=== PATIENT | male | born 1950 | race Caucasian/White ===

== ENCOUNTER 2019-01-28 10:46 | Inpatient (IN) ==
--- NOTE | 2019-01-02 15:15 | PAT Medication Instructions ---
Medication Instructions Date of Service January 02, 2019 Home Medications allopurinol 100 mg PO QAM lisinopril 20 mg PO QAM naproxen sodium [Aleve] 220 mg PO UD PRN ASK your surgeon for instructions naproxen sodium [Aleve] 220 mg PO UD PRN DO NOT take the morning of surgery lisinopril 20 mg PO QAM Take morning of surgery With a small sip of water, OTHERWISE NOTHING TO EAT OR DRINK AFTER MIDNIGHT: allopurinol 100 mg PO QAM Other Notes If you have any questions please call us at [phone] or [phone] or [phone] or [phone]
--- NOTE | 2019-01-05 08:05 | History & Physical Report ---
Date of Service January 05, 2019 Date of Surgery: 01/28/19 Assessment & Plan (1) Arthritis of right glenohumeral joint: Risks and benefits of procedure discussed in detail today, patient would like to proceed with a right shoulder resurfacing vs total shoulder replacement at [facility] on 01-28-19. will obtain medical clearance prior to surgery as well as obtain PATs at [facility]. f/u 2 weeks post op for routine post-operative care and xray, sooner if having any problems. will make arrangements for OPPT at the time of discharge. History of Present Illness Chief Complaint: Right shoulder pain Primary Care Provider: Richard Mixon Mr Weber is a 68 year old male who complains of right shoulder pain, is here today for pre-op evaluation prior to right shoulder resurfacing vs total shoulder replacement at [facility] on 01-28-19. He presents with pain, crepitus, decreased ROM, weakness on the right side. He states that the symptoms have been chronic non-traumatic. Although pt. has had pain for years, he reports falling in his garage early October. He indicates the injury occurred at home. Glenis states that the symptoms began as the result of a fall injury. The symptoms occur constantly with intermittent worsening. The problem is unchanged. Currently the patient states that the symptoms are moderate. The pain is rated at 6/10. The patient presents with shoulder weakness on the right side. The symptoms are aggravated by daily activities, lifting away from the body, lifting, repetitive activities and reaching overhead. Glenis states that the symptoms were mildly relieved by injections. He has had a previous x-ray and MRI. Prior NSAIDs include Aleve and Ibuprofen. He has been treated with Pt. has had Cortisone and Visco in his shoulder in the past on the right side. Allergies Allergy/AdvReac Type Severity Reaction Status Date / Time No Known Allergies Allergy Unverified 12/26/18 09:05 Home Medications Home Medications Medication Instructions Recorded Confirmed Type allopurinol 100 mg PO QAM 12/26/18 12/26/18 History lisinopril 20 mg PO QAM 12/26/18 12/26/18 History naproxen sodium [Aleve] 220 mg PO UD PRN 12/26/18 12/26/18 History Past Med/Surg History Medical History Gout Hypertension Morbid obesity Osteoarthritis Surgical History History of hand surgery RIGHT HAND "PINNED AND WIRED" History of total bilateral knee replacement (TKR) Family History Mother Family history of cancer Father Family history of cancer Social History Preferred Language: Colombian Communication Ability: Effective Fabrication Welder Required: No Beliefs That Will Affect Care: None Current Living Situation: Spouse Other Information That Helps Us Care for You: No Feels Safe at Home: Yes Smoking Status: Never smoker Hx Alcohol Use: Yes Hx Substance Use: No Review of Systems All systems reviewed & are unremarkable except as noted in HPI & below Constitutional: no fever, no chills and no sweats Respiratory: no cough and no dyspnea Cardiovascular: no chest pain, no dyspnea and no orthopnea Gastrointestinal: no nausea and no vomiting Integumentary: no rash and no lesions Physical Exam Vital Signs (Past 24 Hours): Ht: 5ft 11in Wt: 149.6kg BP: 148/88 Pulse: 64 Constitutional: WD/WN, vitals as above no acute distress Respiratory: normal respiratory effort, lungs clear to auscultation no respiratory distress and does not use accessory muscles Cardiovascular: RRR, no murmur, no edema Gastrointestinal (Abdomen): normal bowel sounds, soft, nontender, no hepatosplenomegaly Musculoskeletal: Right Shoulder Physical Exam Elbow- full painless range of motion, no tenderness. wrist- radial/median/ulnar nerves intact. Right Shoulder no ecchymosis, positive Crepitation with active motion, Tenderness anterior aspect shoulder and AC joint. Belly press - Positive. [place] Positive. Cross Body Positive. Neer's - positive. Strength tests - External rotation 4/5, Supraspinatus 4/5 no atrophy, Right shoulder ROM Active ROM - Flexion: 120 degrees, Ext Rot 90 Flex: 30 degrees, Abduction: 45 degrees, Factors: pain, Description: Pain with ROM. Passive ROM - Factors: pain. Neurovascular- Radial pulse palpable, radial/median/ulnar nerves intact. Results & Data Diagnostic Findings Right shoulder 3 views showing advanced degenerative changes right glenohumeral joint, complete loss of joint space with osteophyte formation, joint space narrowing and subchondral sclerosis. no acute bony pathology noted, no loose bodies, large inferior osteophyte.
--- NOTE | 2019-01-05 09:39 | Anesthesiology Consultation ---
Date of Service January 05, 2019 Assessment & Plan (1) Encounter for pre-operative examination: - Possible difficult intubation due to anatomy. - HGBA1C 7.0% on preop labs. Patient denied known history of diabetes. Surgeon made aware. Note sent to PCP regarding new diagnosis diabetes; patient was seen by PCP= 01/22/19= Metformin was initiated. Lisinopril dose increased to 40mg daily (BP 150/88 at PCP visit). "Medically cleared" for shoulder surgery. Patient made aware to hold Metformin AM DOS and medication list updated. - Check BSG AM DOS Chart Review Chart Review: Acceptable Risk for Surgery and Patient seen in Pre Admission Testing Teaching & Discussion Pre-Anesthesia Teaching/Discussion Notes: Instructed NPO after midnight before surgery,except medications with 15 cc of water. Medication instructions provided according to the PAT guidelines. History Surgery Operation Date: 01/28/19 07:00 Proposed Procedures p Right Shoulder Tournier Resurfacing versus - Farhat Winn DO s Hemiarthroplasty versus Total Shoulder Arthroplasty - Farhat Winn DO Height/Weight Height: 5 ft 11 in Weight: 159.9 kg Allergies Allergy/AdvReac Type Severity Reaction Status Date / Time No Known Allergies Allergy Unverified 12/26/18 09:05 Medications Home Medications Medication Instructions Recorded Confirmed Last Taken allopurinol 100 mg PO QAM 12/26/18 12/26/18 12/26/18 lisinopril 20 mg PO QAM 12/26/18 12/26/18 12/26/18 naproxen sodium [Aleve] 220 mg PO UD PRN 12/26/18 12/26/18 Unknown metformin 500 mg PO BID 01/22/19 01/22/19 Unknown Past Medical History Medical History Diabetes mellitus NEW DX ON PREOP LABS; METFORMIN INITIATED BY PCP Gout Hypertension Morbid obesity Osteoarthritis Past Family History Family History Mother Family history of cancer Father Family history of cancer Past Surgical History Surgical History History of hand surgery RIGHT HAND "PINNED AND WIRED" History of total bilateral knee replacement (TKR) Past Anesthesia History No Hx of Anesthesia Complications and No Family Hx of Anesthesia Complications History of PONV No Motion Sickness Screening History of Motion Sickness: No Social History Smoking Status: Never smoker Do You Dip or Chew Tobacco: No Hx Alcohol Use: Yes Alcohol type: beer alcohol intake frequency: a few times a month Hx Substance Use: No substance use type: does not use Exercise / Class Metabolic Activity II 4-5 Yardwork/Stairs/Walk up hill Review of Systems Patient reports right shoulder pain. Patient denies chest pain, shortness of breath, dyspnea on exertion, cough, wheezing, palpitations. Physical Exam Vital Signs VITALS BP 158/98 (per patient, did not take BP meds this AM; advised patient to take BP meds as directed) P 67 TEMP 98.6 SP02 94%RA RESP 18 PHYSICAL Full neck and c-spine range of motion. Full TMJ range of motion. TMD 3 finger breaths Mallampati Score 3 Dentition: multiple chipped teeth on sides/molars per patient Lungs: clear throughout to auscultation Cardiac: regular rate and rhythm, no murmurs noted Spine: normal Carotid arteries: negative bruit Extremities: no edema Trimmed moore Small oral opening Large tongue Testing Electrocardiogram Date: 01/05/19 SR with first degree AVB at 66bpm. Chest X-Ray Date: 01/05/19 Findings: + NAD Echocardiogram Date: 12/17/17 No RWMA. LVEF 60-65%. Ascending aortic root dilation. Mildly thickened AV. No significant valvular disease. Laboratory Results 01/05/19 10:01 01/05/19 10:01 Blood Type A Positive 01/05/19 10:01 Antibody Screen NEGATIVE 01/05/19 10:01 PT 10.3 Seconds (9.0-12.0) 01/05/19 10:01 INR 1.0 (0.9-1.1) 01/05/19 10:01 APTT 30.9 Seconds (21.0-31.0) 01/05/19 10:01 Hemoglobin A1c 7.0 % (4.5-5.6) H 01/05/19 10:01 Urine Color Yellow 01/05/19 10:01 Urine Appearance Clear (Clear) 01/05/19 10:01 Urine pH 5.0 (4.5-7.5) 01/05/19 10:01 Ur Specific [place] 1.026 (1.000-1.030) 01/05/19 10:01 Urine Protein Negative (Negative) 01/05/19 10:01 Urine Glucose (UA) Negative (Negative) 01/05/19 10:01 Urine Ketones Negative (Negative) 01/05/19 10:01 Urine Nitrite Negative (Negative) 01/05/19 10:01 Ur Leukocyte Esterase Negative (Negative) 01/05/19 10:01 01/05/19 10:01 Urine Culture - Final Urine,Clean Catch Three types of organisms present, all low counts probable skin isma. No further identifications or sensitivities to follow. Surgeon made aware of elevated hgba1c
--- NOTE | 2019-01-05 10:23 | XRay Report ---
XR chest Pre-admission PA/Lat HISTORY: Preop. COMPARISON: Chest 06/05/2013. FINDINGS: The lungs are clear. Cardiac silhouette is normal in size. No pleural effusions. No pneumot horax. IMPRESSION: No acute process. Electronically signed by: Mo Wang M.D. 01/05/2019 10:22 AM
[2019-01-05 10:51] LABS: Basophils # (auto) 0.04 K/uL (0-0.2); Basophils % (auto) 0.7 %; Eosinophils # (auto) 0.07 K/uL (0-0.5); Eosinophils % (auto) 1.2 %; Hematocrit (blood only) 46.9 % (42-52); Hemoglobin 15.6 g/dL (14.0-18.0); Immature Granulocytes # (auto) 0.07 K/uL (0.00-0.02); Immature Granulocytes % (auto) 1.2 %; Lymphocytes % (auto) 26.4 %; Mean Corpuscular Hgb Conc 33.3 g/dL (32-36); Mean Platelet Volume 10.1 fL (7.4-10.4); Monocytes # (auto) 0.49 K/uL (0.11-0.59); Monocytes % (auto) 8.1 %; Neutrophils # (auto) 3.78 K/uL (1.4-6.5); Neutrophils % (auto) 62.4 %; Platelet Count 197 K/uL (130-400); RDW Coefficient of Variation 13.6 % (11.5-14.5); White Blood Count 6.05 K/uL (4.8-10.8)
[2019-01-05 10:57] LABS: Estimated Average Glucose 154 mg/dl
[2019-01-05 11:02] LABS: Albumin Level 3.5 gm/dl (3.4-5.0); BUN Creatinine Ratio 21.6 (10-20); Calcium 8.8 mg/dl (8.5-10.1); Creatinine Clr Calc Pharmacy 110.7 ml/min; Est GFR (African American) 89.9; Est GFR (Non-African American) 77.5; Potassium 4.4 mmol/L (3.5-5.1)
[2019-01-05 11:04] LABS: Partial Thromboplastin Ratio 1.1; Partial Thromboplastin Time 30.9 Seconds (21.0-31.0); Prothrombin Time 10.3 Seconds (9.0-12.0)
[2019-01-05 11:48] LABS: Appearance Urine Clear (Clear); Bilirubin Urine Negative (Negative); Blood Urine Negative (Negative); Color Urine Yellow; Glucose Urine UA Negative (Negative); Ketones Urine Negative (Negative); Leukocyte Esterase Urine Negative (Negative); Nitrite Urine Negative (Negative); Protein Urine Negative (Negative); Specific Gravity Urine 1.026 (1.000-1.030); Urobilinogen Urine Negative (Negative)
[~2019-01-28 10:46] MED LIST: ACETAMINOPHEN 500 MG TAB PO SCH; CEFAZOLIN 3000MG 65 ML IV SCH; CeleBREX 200 MG CAP PO SCH; FAMOTIDINE 20 MG TAB PO SCH; GABAPENTIN 300 MG PO SCH; LR 15ML/HR IV SCH; ROPIVACAINE 0.5% 5 MG/ML 30 ML VIAL ONE; ROPIVACAINE 0.5% HCL/PF 150 MG, BUPIVACAINE 0.5% MPF 30 ML, EPINEPHrine 30MG/30ML (OR U... INFIL SCH; dexAMETHasone 4 MG TAB PO SCH
--- NOTE | 2019-01-28 12:33 | History & Physical Bridge Note ---
Date of Service January 28, 2019 History & Physical Bridge Note I have examined the patient, reviewed the History & Physical and in the interval since the performance of the History & Physical I have noted the following changes of clinical significance: no changes noted
[2019-01-28] MEDS ORDERED: fentaNYL citrate 100 MCG/2 ML VIAL ONE (12:34)
[2019-01-28] MEDS ORDERED: MIDAZOLAM HCL 1 MG/ML 2ML VIAL ONE (12:34)
[2019-01-28] MEDS ORDERED: THROMBIN FOR SOLN 20000 UNIT KIT ONE (13:10)
[2019-01-28] MEDS ORDERED: BACITRACIN INJ 50,000 UNIT VIAL ONE (13:10)
[2019-01-28] MEDS ORDERED: HYDROmorphone INJ 1 MG/ML SYRINGE IV PRN ×2 (13:55→18:25)
[2019-01-28] MEDS ORDERED: ePHEDrine sulfate 50 MG/ML AMP IV PRN (13:55)
[2019-01-28] MEDS ORDERED: ATROPINE SULFATE 0.1 MG/ML 10ML SYR IV PRN (13:55)
--- NOTE | 2019-01-28 16:27 | Operative Report ---
Post Operative Report Pre & Post Diagnosis Operation Date: 01/28/19 13:40 Pre-Op Diagnosis: Right Shoulder Osteoarthritis Post-Op Diagnosis: Right Shoulder Osteoarthritis Procedure Operation Date: 01/28/19 13:40 Actual Procedures p Right Shoulder Tournier Resurfacing (Right) utilizing Tornier hemiarthroplasty 46 x 17 hemiarthroplasty head with Arthrex subscap lock for repair of subscapularis- Farhat Winn DO Surgeon Farhat Winn DO [employer] Testing Supervisor Alberto ROCHA Estimated Blood Loss 15 Findings Consistent with Post-Op Diagnosis Patient presents with DJD of the right shoulder joint with large osteophytes around the inferior aspect of the humeral head with eburnated bone on the humeral head the glenoid articular cartilage was satisfactory condition there was noted to be evidence of subchondral sclerosis with subchondral cystic changes and marginal osteophytes patient is failed attempts at conservative management presents for right shoulder hemiarthroplasty Specimens Bone and cartilage Drains Medium bore Hemovac Complications none Disposition Accompanied Patient To Recovery: No Disposition: Recovery Room Indications Patient presents ongoing planes of pain about his right shoulder no response to conservative management patient presents for right shoulder hemiarthroplasty patient failed attempts of Visco supplementation corticosteroid injections relative rest activity modification with ongoing planes of pain night pain no response to conservative management the above intraoperative findings noted times surgery. Description of Procedure After proper prepping draping the right shoulder region and anterior deltopectoral interval incision was made in the region of the deltopectoral interval the subcutaneous tissue was meticulously intact any bleeders were coagulated with cautery the deltopectoral interval was repaired was then developed and the cephalic vein was carefully retracted lateralward with deltoid muscle the deltopectoral interval was the was developed down to the region of the anterior subscapularis the proximal 1 cm of pectoralis major was released from the humeral shaft to allow for greater exposure the subscapularis was also reflected off the humeral head osteophytes were noted the special attention was paid to protect neurovascular structures Nerve at all times the wound was thoroughly irrigated glenoid was inspected some of the debridement of the glenoid labrum was performed back to stable margin after thorough irrigation debridement lavage the the humeral head was reamed to a size 46 x 17 gave anatomic recreation of previous anatomy the trial was placed and reduced gave excellent stability in both flexion extension circumduction internal and external rotation the humeral head having been reamed up to reverse Reamer anterior bicipital tuberosity was evaluated the bicipital groove and subsequently had placement of 2 subscapularis Arthrex tape anchors for repair of the subscapularis tendon the humeral head component was subsequently tapped into position after passage of the Arthrex fiber tapes the utilizing the fiber tapes they were subsequently used to advance the subscapularis back to the humeral head with excellent repair of the subscapularis back to bed of bleeding bone the rotator interval was repaired with #2 FiberWire the wound was irrigated Sterile Saline Solution a Medium Bore Hemovac Was Placed in the Deep of the Deltopectoral Interval Was Closed with 2-0 Vicryl Subcu Was Closed with 3-0 Vicryl Skin Was Closed with Skin Clips Sterile Compressive Dressing Was Placed Patient Was Taken Recovery Room in a Shoulder Immobilizer Neurovascular Neurologically Intact Please Note Alberto ROCHA Was Necessary Prepping Draping Retraction Wound Closure the Fascia Subcu and Skin Was Necessary for the Case I attest to the content of the Intraoperative Record and any orders documented therein. Any exceptions are noted below.
[2019-01-28] MEDS ORDERED: PROPOFOL IV EMULSION 10 MG/ML 20 ML VIAL IV ONE (16:50)
[2019-01-28] MEDS ORDERED: ONDANSETRON INJ 2 MG/ML 2 ML VIAL ONE (17:00)
[2019-01-28] MEDS ORDERED: ROCURONIUM BROMIDE 10 MG/ML 5 ML VIAL ONE (17:00)
[2019-01-28] MEDS ORDERED: LIDOCAINE HCL 2% 2 ML VIAL/AMP(20MG/ML) INFIL ONE (17:00)
[2019-01-28] MEDS ORDERED: PHENYLEPHRINE HCL 10 MG/ML VIAL ONE (17:01)
[2019-01-28] MEDS ORDERED: PHENYLEPHRINE 100MCG/ML 5ML SYR ONE (17:01)
--- NOTE | 2019-01-28 17:56 | Anesthesiology Progress Note ---
Date of Service January 28, 2019 Anesthesia Post Procedure Vital Signs Vital Signs: Temp Pulse Pulse Resp BP BP Pulse Ox 01/28/19 17:50 70 24 141/70 H 94 01/28/19 17:40 36.6 C 68 24 149/80 H 93 01/28/19 17:30 70 22 154/90 H 90 01/28/19 17:20 70 24 161/80 H 92 01/28/19 17:10 71 24 144/92 H 92 01/28/19 17:00 80 22 170/89 H 91 01/28/19 16:54 36.6 C 82 24 180/96 H 92 01/28/19 11:30 36.8 C 75 22 192/99 H 95 Pain Intensity Right Shoulder: Pain Intensity: 6 Notes Mental Status: alert / awake / arousable Patient Amnestic to Procedure: Yes Nausea / Vomiting: adequately controlled Pain: adequately controlled Airway Patency, RR, SpO2: stable & adequate BP & HR: stable & adequate Hydration State: stable & adequate Anesthetic Complications: no major complications apparent Notes: Block working well in pacu
--- NOTE | 2019-01-28 18:01 | XRay Report ---
XR shoulder RT min 2V routine CLINICAL HISTORY: Post shoulder surgery COMPARISON STUDY: None. FINDINGS: The patient is status post resurfacing of the right humeral head. The hardware appears inta ct. No fracture or dislocation. Surgical drains are in place. IMPRESSION: Status post resurfacing of the right humeral head. No evidence for hardware complication . Electronically signed by: Mo Wang M.D. 01/28/2019 5:59 PM
[2019-01-28] MEDS ORDERED: MAGNESIUM HYDROXIDE SUSP 30 ML UDC PO PRN (18:25)
[2019-01-28] MEDS ORDERED: NALOXONE HCL 0.4 MG/1 ML VIAL/CARP IV PRN (18:25)
[2019-01-28] MEDS ORDERED: SODIUM CHLORIDE 0.9% 1000ML 1,000 ML IV SCH (18:25)
[2019-01-28] MEDS ORDERED: BISACODYL 10 MG SUPP PR PRN (18:25)
[2019-01-28] MEDS ORDERED: ONDANSETRON INJ 2 MG/ML 2 ML VIAL IV PRN (18:25)
[2019-01-28] MEDS ORDERED: OXYCODONE HCL IR 5 MG TAB (IMMEDIATE RELEASE) PO PRN (18:25)
[2019-01-28] MEDS ORDERED: ALUMINUM/MAGNESIUM SUSP 30 ML UDC PO PRN (18:25)
[2019-01-28] MEDS ORDERED: METOCLOPRAMIDE HCL INJ 5 MG/ML 2 ML VIAL IV PRN (18:25)
[2019-01-28] MEDS ORDERED: TAMSULOSIN HCL 0.4 MG CAP PO PRN (18:25)
[2019-01-28] MEDS ORDERED: PHARMACY GLYCEMIC MGMT CONSULT PRN (18:55)
[2019-01-28] MEDS ORDERED: NovoLIN-N (NPH) PER UNIT CHARGE SQ SCH (19:30)
[2019-01-28] MEDS: KETOROLAC TROMETHAMINE 15 MG/ML VIAL IV SCH ×2 (19:36→23:37)
[2019-01-28] MEDS ORDERED: CARBOHYDRATES FOR HYPOGLYCEMIA PO PRN (19:45)
[2019-01-28] MEDS ORDERED: GLUCOSE 10 TABS/TUBE PO PRN (19:45)
[2019-01-28] MEDS ORDERED: DEXTROSE 50% 50 ML SYRINGE IV PRN (19:45)
[2019-01-28] MEDS ORDERED: GLUCOSE 40% GEL 15 GM TUBE PO PRN (19:45)
[2019-01-28] MEDS ORDERED: GLUCAGON FOR INJ 1 MG VIAL IM PRN (19:45)
[2019-01-28] MEDS: INSULIN ASPART 100 UNITS/ML 3 ML PEN SC SCH ×2 (19:56→21:40)
[2019-01-28] MEDS ORDERED: SENNA 8.6 MG TAB PO SCH (21:00)
[2019-01-28] MEDS: DOCUSATE SODIUM 100 MG CAP PO SCH (21:38)
[2019-01-28] MEDS: CEFAZOLIN 2000MG 2,000 MG/15 ML SYR IV SCH (21:38)
[2019-01-28] MEDS: ASPIRIN 81 MG ECTAB PO SCH (21:38)
[2019-01-28] MEDS: ACETAMINOPHEN 500 MG TAB PO SCH (21:39)
[2019-01-29] MEDS: CEFAZOLIN 2000MG 2,000 MG/15 ML SYR IV SCH (05:12)
[2019-01-29] MEDS: KETOROLAC TROMETHAMINE 15 MG/ML VIAL IV SCH (05:12)
[2019-01-29] MEDS: ACETAMINOPHEN 500 MG TAB PO SCH (05:13)
[2019-01-29 06:13] LABS: Basophils # (auto) 0.01 K/uL (0-0.2); Basophils % (auto) 0.1 %; Eosinophils # (auto) 0.01 K/uL (0-0.5); Eosinophils % (auto) 0.1 %; Hematocrit (blood only) 41.8 % (42-52); Immature Granulocytes # (auto) 0.04 K/uL (0.00-0.02); Immature Granulocytes % (auto) 0.3 %; Lymphocytes # (auto) 1.25 K/uL (1.2-3.4); Lymphocytes % (auto) 10.2 %; Mean Corpuscular Hgb Conc 33.5 g/dL (32-36); Mean Corpuscular Volume 90.3 fL (80-100); Mean Platelet Volume 9.7 fL (7.4-10.4); Monocytes # (auto) 1.02 K/uL (0.11-0.59); Monocytes % (auto) 8.3 %; Neutrophils # (auto) 9.94 K/uL (1.4-6.5); Platelet Count 203 K/uL (130-400); RDW Coefficient of Variation 13.7 % (11.5-14.5); RDW Standard Deviation 45.1 fL (36.4-46.3); Red Blood Count 4.63 M/uL (4.7-6.1); White Blood Count 12.27 K/uL (4.8-10.8)
[2019-01-29 06:45] LABS: BUN Creatinine Ratio 23.7 (10-20); Calcium 8.5 mg/dl (8.5-10.1); Creatinine Clr Calc Pharmacy 95.8 ml/min; Est GFR (African American) 75.9; Est GFR (Non-African American) 65.5; Potassium 4.2 mmol/L (3.5-5.1)
--- NOTE | 2019-01-29 07:25 | Orthopedic Progress Note ---
Date of Service January 29, 2019 Assessment & Plan (1) Status post right shoulder hemiarthroplasty: POD #1 s/p right shoulder resurfacing pt/ot dvt proph with DERRELL/SCD/ASA plan for d/c home with outpatient PT after PT today f/u in the office in 2 weeks. Subjective POD #1 s/p right shoulder resurfacing denies CP/SOB denies Fever/Chills pain currently 11/06 Physical Exam Vital Signs (Past 24 Hours): Last Vital Signs Temp 36.6 C 01/29/19 06:58 Pulse 61 01/29/19 06:58 Resp 18 01/29/19 06:58 BP 124/70 01/29/19 06:58 Pulse Ox 95 01/29/19 06:58 Constitutional: WD/WN, vitals as above no acute distress Musculoskeletal: right shoulder dressing clean and dry, hemovac 150/8 hours, radial/median/ulnar nerves intact. radial pulse +2 Results & Data Laboratory Results Laboratory Results WBC 12.27 K/uL (4.8-10.8) H 01/29/19 05:56 RBC 4.63 M/uL (4.7-6.1) L 01/29/19 05:56 Hgb 14.0 g/dL (14.0-18.0) 01/29/19 05:56 Hct 41.8 % (42-52) L 01/29/19 05:56 MCV 90.3 fL (80-100) 01/29/19 05:56 MCH 30.2 pg (25-34) 01/29/19 05:56 MCHC 33.5 g/dL (32-36) 01/29/19 05:56 RDW Std Deviation 45.1 fL (36.4-46.3) 01/29/19 05:56 RDW Coeff of Jacqueline 13.7 % (11.5-14.5) 01/29/19 05:56 Plt Count 203 K/uL (130-400) 01/29/19 05:56 MPV 9.7 fL (7.4-10.4) 01/29/19 05:56 Immature Gran % (Auto) 0.3 % 01/29/19 05:56 Neut % (Auto) 81.0 % 01/29/19 05:56 Lymph % (Auto) 10.2 % 01/29/19 05:56 [place] % (Auto) 8.3 % 01/29/19 05:56 Eos % (Auto) 0.1 % 01/29/19 05:56 Baso % (Auto) 0.1 % 01/29/19 05:56 Immature Gran # (Auto) 0.04 K/uL (0.00-0.02) H 01/29/19 05:56 Neut # (Auto) 9.94 K/uL (1.4-6.5) H 01/29/19 05:56 Lymph # (Auto) 1.25 K/uL (1.2-3.4) 01/29/19 05:56 [place] # (Auto) 1.02 K/uL (0.11-0.59) H 01/29/19 05:56 Eos # (Auto) 0.01 K/uL (0-0.5) 01/29/19 05:56 Baso # (Auto) 0.01 K/uL (0-0.2) 01/29/19 05:56 PT 10.3 Seconds (9.0-12.0) 01/05/19 10:01 INR 1.0 (0.9-1.1) 01/05/19 10:01 APTT 30.9 Seconds (21.0-31.0) 01/05/19 10:01 PTT Ratio 1.1 01/05/19 10:01 Sodium 138 mmol/L (136-145) 01/29/19 05:56 Potassium 4.2 mmol/L (3.5-5.1) 01/29/19 05:56 Chloride 107 mmol/L (98-107) 01/29/19 05:56 Carbon Dioxide 26 mmol/L (21-32) 01/29/19 05:56 Anion Gap 5.0 (3-11) 01/29/19 05:56 BUN 27 mg/dl (7-18) H 01/29/19 05:56 Creatinine 1.15 mg/dl (0.6-1.4) 01/29/19 05:56 Est Cr Clr Drug Dosing 95.8 ml/min 01/29/19 05:56 Est GFR ( Amer) 75.9 01/29/19 05:56 Est GFR (Non-Af Amer) 65.5 01/29/19 05:56 BUN/Creatinine Ratio 23.7 (10-20) H 01/29/19 05:56 Glucose 125 mg/dl (70-99) H 01/29/19 05:56 POC Glucose 182 (70-99) H 01/28/19 20:42 Estimat Average Glucose 154 mg/dl 01/05/19 10:01 Hemoglobin A1c 7.0 % (4.5-5.6) H 01/05/19 10:01 Calcium 8.5 mg/dl (8.5-10.1) 01/29/19 05:56 Albumin 3.5 gm/dl (3.4-5.0) 01/05/19 10:01 Urine Color Yellow 01/05/19 10:01 Urine Appearance Clear (Clear) 01/05/19 10:01 Urine pH 5.0 (4.5-7.5) 01/05/19 10:01 Ur Specific [place] 1.026 (1.000-1.030) 01/05/19 10:01 Urine Protein Negative (Negative) 01/05/19 10:01 Urine Glucose (UA) Negative (Negative) 01/05/19 10:01 Urine Ketones Negative (Negative) 01/05/19 10:01 Urine Blood Negative (Negative) 01/05/19 10:01 Urine Nitrite Negative (Negative) 01/05/19 10:01 Urine Bilirubin Negative (Negative) 01/05/19 10:01 Urine Urobilinogen Negative (Negative) 01/05/19 10:01 Ur Leukocyte Esterase Negative (Negative) 01/05/19 10:01 Blood Type A Positive 01/05/19 10:01 Antibody Screen NEGATIVE 01/05/19 10:01 Diagnostic Findings XR shoulder RT min 2V routine CLINICAL HISTORY: Post shoulder surgery COMPARISON STUDY: None. FINDINGS: The patient is status post resurfacing of the right humeral head. The hardware appears intact. No fracture or dislocation. Surgical drains are in place. IMPRESSION: Status post resurfacing of the right humeral head. No evidence for hardware complication.
[2019-01-29] MEDS: DOCUSATE SODIUM 100 MG CAP PO SCH (07:30)
[2019-01-29] MEDS: ASPIRIN 81 MG ECTAB PO SCH (07:31)
[2019-01-29] MEDS: INSULIN ASPART 100 UNITS/ML 3 ML PEN SC SCH (08:40)
[2019-01-29] MEDS ORDERED: MULTIVITAMIN TAB PO SCH (09:00)
[2019-01-29] MEDS ORDERED: ALLOPURINOL 100 MG TAB PO SCH (09:00)
[2019-01-29] MEDS ORDERED: LISINOPRIL 40 MG TAB PO SCH (09:00)
--- NOTE | 2019-01-29 10:43 | Pharmacy Report ---
Glycemic Control Consultation - Date of Service January 29, 2019 - Scope Scope: Glycemic Pharmacist consulted by Alberto Gaytan on 01/28/19 for glycemic control and to write orders per [facility] inpatient glycemic control protocol - Objective Weight: 158.786 kg Accuchecks BSG (last 24hrs): 01/28/19 01/28/19 01/28/19 11:17 16:56 18:24 Glucose POC Glucose 121 H 203 H 175 H 01/28/19 01/29/19 01/29/19 20:42 05:56 08:00 Glucose 125 H POC Glucose 182 H 135 H Laboratory Data (last 24hrs): 01/29/19 05:56 Potassium 4.2 Carbon Dioxide 26 Anion Gap 5.0 Creatinine 1.15 Est Cr Clr Drug Dosing 95.8 HbA1c: Hemoglobin A1c 7.0 % (4.5-5.6) H 01/05/19 10:01 - Recent Pertinent Medications Outpatient Anti-diabetic Regimen: * Metformin 500mg BIDM * A1c = 7.0 % 01/05/19 - Assessment & Plan Assessment & Plan: ASSESSMENT: * Mr. Weber is a 68yo M s/p R shoulder replacement. A1C of 7% is reasonable given his age and co morbidities. He is only maintained on metformin as an outpt. He did receive DXM 8mg PO Pre-operatively. BSGs are well controlled today. Other than recent surgery and pre-op GCs minimal other RF for insulin resistance. PLAN FOR INPATIENT GLYCEMIC CONTROL: * Holding outpatient oral diabetes medications * Basal insulin * NPH 30 units x1 given yesterday evening * Bolus insulin * NovoLog per scale ACHS or Q6hrs while NPO * Goal Range: Low 110 mg/dL - High 140 mg/dL * Correction Factor: 15 mg/dL/unit * Nutritional / Prandial insulin per carb ratio of 1 unit per 5 grams CHO consumed * Please note that the plan above was derived based on current level of insulin resistance and hospital stress. These recommendations are appropriate for inpatient admission only. Plan of care upon discharge will need to be reassessed to avoid potential outpatient hypo/hyperglycemia. Thank you.
--- NOTE | 2019-01-29 13:33 | Discharge Summary ---
Date of Service Date of Discharge: January 29, 2019 Date of Admission: 01/28/19 Admission HPI Per Admitting Provider Mr Weber is a 68 year old male who complains of right shoulder pain, is here today for pre-op evaluation prior to right shoulder resurfacing vs total shoulder replacement at [facility] on 01-28-19. He presents with pain, crepitus, decreased ROM, weakness on the right side. He states that the symptoms have been chronic non-traumatic. Although pt. has had pain for years, he reports falling in his garage early October. He indicates the injury occurred at home. Glenis states that the symptoms began as the result of a fall injury. The symptoms occur constantly with intermittent worsening. The problem is unchanged. Currently the patient states that the symptoms are moderate. The pain is rated at 6/10. The patient presents with shoulder weakness on the right side. The symptoms are aggravated by daily activities, lifting away from the body, lifting, repetitive activities and reaching overhead. Glenis states that the symptoms were mildly relieved by injections. He has had a previous x-ray and MRI. Prior NSAIDs include Aleve and Ibuprofen. He has been treated with Pt. has had Cortisone and Visco in his shoulder in the past on the right side. Principal Diagnosis right shoulder arthritis Discharge Exam Constitutional WD/WN, vitals as above no acute distress Musculoskeletal right shoulder dressing clean and dry, hemovac 150/8 hours, radial/median/ulnar nerves intact. radial pulse +2 Discharge Data Allergies Allergy/AdvReac Type Severity Reaction Status Date / Time No Known Allergies Allergy Verified 01/28/19 11:14 Consultations 01/28/19 18:25 Consult Case Management - Discharge Planning Routine Procedures Performed Operation Date: 01/28/19 13:40 Actual Procedures p Right Shoulder Tournier Resurfacing (Right) - Farhat Winn DO Ordered Studies 01/28/19 05:00 US - OR guided needle placemen Routine Hospital Course (1) Status post right shoulder hemiarthroplasty: POD #1 s/p right shoulder resurfacing pt/ot dvt proph with DERRELL/SCD/ASA plan for d/c home with outpatient PT after PT today f/u in the office in 2 weeks. Patient was a same day admission after undergoing a successful right shoulder resurfacing, He tolerated the procedure well. Post-operatively, his activity was progressed and well tolerated. Please refer to daily progress notes and PT notes for complete details. After exam on 01/29/19, patient felt to be stable for discharge home with HHPT. Patient will f/u in the office in 2 weeks for further evaluation including x-rays and incision check, sooner if having any issues or concerns. Below are pertinent labs/studies during their hospital stay: Laboratory Results WBC 12.27 K/uL (4.8-10.8) H 01/29/19 05:56 RBC 4.63 M/uL (4.7-6.1) L 01/29/19 05:56 Hgb 14.0 g/dL (14.0-18.0) 01/29/19 05:56 Hct 41.8 % (42-52) L 01/29/19 05:56 MCV 90.3 fL (80-100) 01/29/19 05:56 MCH 30.2 pg (25-34) 01/29/19 05:56 MCHC 33.5 g/dL (32-36) 01/29/19 05:56 RDW Std Deviation 45.1 fL (36.4-46.3) 01/29/19 05:56 RDW Coeff of Jacqueline 13.7 % (11.5-14.5) 01/29/19 05:56 Plt Count 203 K/uL (130-400) 01/29/19 05:56 MPV 9.7 fL (7.4-10.4) 01/29/19 05:56 Immature Gran % (Auto) 0.3 % 01/29/19 05:56 Neut % (Auto) 81.0 % 01/29/19 05:56 Lymph % (Auto) 10.2 % 01/29/19 05:56 [place] % (Auto) 8.3 % 01/29/19 05:56 Eos % (Auto) 0.1 % 01/29/19 05:56 Baso % (Auto) 0.1 % 01/29/19 05:56 Immature Gran # (Auto) 0.04 K/uL (0.00-0.02) H 01/29/19 05:56 Neut # (Auto) 9.94 K/uL (1.4-6.5) H 01/29/19 05:56 Lymph # (Auto) 1.25 K/uL (1.2-3.4) 01/29/19 05:56 [place] # (Auto) 1.02 K/uL (0.11-0.59) H 01/29/19 05:56 Eos # (Auto) 0.01 K/uL (0-0.5) 01/29/19 05:56 Baso # (Auto) 0.01 K/uL (0-0.2) 01/29/19 05:56 PT 10.3 Seconds (9.0-12.0) 01/05/19 10:01 INR 1.0 (0.9-1.1) 01/05/19 10:01 APTT 30.9 Seconds (21.0-31.0) 01/05/19 10:01 PTT Ratio 1.1 01/05/19 10:01 Sodium 138 mmol/L (136-145) 01/29/19 05:56 Potassium 4.2 mmol/L (3.5-5.1) 01/29/19 05:56 Chloride 107 mmol/L (98-107) 01/29/19 05:56 Carbon Dioxide 26 mmol/L (21-32) 01/29/19 05:56 Anion Gap 5.0 (3-11) 01/29/19 05:56 BUN 27 mg/dl (7-18) H 01/29/19 05:56 Creatinine 1.15 mg/dl (0.6-1.4) 01/29/19 05:56 Est Cr Clr Drug Dosing 95.8 ml/min 01/29/19 05:56 Est GFR ( Amer) 75.9 01/29/19 05:56 Est GFR (Non-Af Amer) 65.5 01/29/19 05:56 BUN/Creatinine Ratio 23.7 (10-20) H 01/29/19 05:56 Glucose 125 mg/dl (70-99) H 01/29/19 05:56 POC Glucose 135 (70-99) H 01/29/19 08:00 Estimat Average Glucose 154 mg/dl 01/05/19 10:01 Hemoglobin A1c 7.0 % (4.5-5.6) H 01/05/19 10:01 Calcium 8.5 mg/dl (8.5-10.1) 01/29/19 05:56 Albumin 3.5 gm/dl (3.4-5.0) 01/05/19 10:01 Urine Color Yellow 01/05/19 10:01 Urine Appearance Clear (Clear) 01/05/19 10:01 Urine pH 5.0 (4.5-7.5) 01/05/19 10:01 Ur Specific [place] 1.026 (1.000-1.030) 01/05/19 10:01 Urine Protein Negative (Negative) 01/05/19 10:01 Urine Glucose (UA) Negative (Negative) 01/05/19 10:01 Urine Ketones Negative (Negative) 01/05/19 10:01 Urine Blood Negative (Negative) 01/05/19 10:01 Urine Nitrite Negative (Negative) 01/05/19 10:01 Urine Bilirubin Negative (Negative) 01/05/19 10:01 Urine Urobilinogen Negative (Negative) 01/05/19 10:01 Ur Leukocyte Esterase Negative (Negative) 01/05/19 10:01 Hepatitis C Ab Screen Neg (Neg) 01/29/19 05:56 Blood Type A Positive 01/05/19 10:01 Antibody Screen NEGATIVE 01/05/19 10:01 Total Time Total Time Spent Total Time Spent (In Minutes): 20 Total Time Includes: Examination of the Patient, Discharge Planning and Medication Reconciliation Discharge Plan Discharge Items Patient Disposition: Home - Self-Care Reason For Visit: Right Shoulder Osteoarthritis Discharge Diagnosis: right shoulder resurfacing Condition: Good Discharge Goals: Decrease discomfort, Improve function and Increase independence Activity: Per 'Additional Instructions' section Lifting: Wait until after follow-up appointment Bathing: Keep incision dry Driving/Machine Use Comment: no driving until cleared by your surgeon Non-emergency contact: Primary Care Provider and Surgeon Call non-emergency contact if: you have any medication questions, your temperature is above 101, your wound has increased redness, your wound has incre ased drainage and your wound pain has increased Follow-up/Referrals: Richard Mixon, [Primary Care Provider] - Diet: Carb Consistent or DM2 Addtl Provider Instructions: ACTIVITY RECOMMENDATIONS: SELF CARE INSTRUCTIONS AFTER SHOULDER RESURFACING A. You may do daily exercises as taught in physical therapy while in hospital. No lifting with the operative arm. Please schedule your outpatient physical therapy appointment to begin within 2-3 days after leaving the hospital. Specific restrictions will be written on your physical therapy prescription that is provided to you. B. You are to wear your sling/immobilizer at all times EXCEPT when performing your daily exercises, participating in physical therapy and for hygiene purposes. C. You may perform dry, daily dressing changes. Please keep your incision covered. You may shower 48 hours after surgery. Do not apply soap or any ointment/lotions directly over incision. Do not soak incision in bath tub/swimming pool. D. You may use ice as needed to operative shoulder. SPECIAL CARE INSTRUCTIONS: MEDICATION INSTRUCTIONS: *It is recommended you take Aspirin 325mg daily for four weeks post-op. VERY IMPORTANT TO READ AND REVIEW A. There are a few signs you need to watch for after you are home. Call [facility] at [phone] if you experience any of the followin. Increased severe shoulder pain. Some pain is expected especially when you exercise. 2. Increased swelling in you shoulder or arm; pain or swelling in either upper extremity. 3. Any fluid drainage from the incision. 4. Shortness of breath or chest pain. B. Please call [facility] at [phone] if you have any questions or concerns about your operation or recovery. C. Call your physician if: 1. Temperature is greater than 101 degrees (F). 2. Pain is not relieved by prescribed pain medications. 3. Increase drainage or redness from incision. 4. Unanswered questions or concerns. FOLLOW UP VISIT: Please call [facility] at [phone] to schedule a follow up appointment with Dr. Winn or his PA in 12-14 days from your surgery date. Prescriptions: New aspirin [Ecotrin Low Strength] 81 mg Tablet,Delayed Release (Dr/Ec) 81 mg PO BID 30 Days Qty: 60 RF: 0 celecoxib [Celebrex] 200 mg Capsule 200 mg PO BID 30 Days Qty: 60 RF: 0 docusate sodium 100 mg Capsule 100 mg PO BID 10 Days Qty: 20 RF: 0 cefadroxil 500 mg capsule 500 mg PO BID 10 Days Qty: 20 RF: 0 oxycodone-acetaminophen [Percocet] 5-325 mg tablet 1 - 2 tab PO Q6H PRN (Reason: pain) Qty: 30 RF: 0 Continued lisinopril 20 mg Tablet 40 mg PO QAM RF: 0 allopurinol 100 mg Tablet 100 mg PO QAM RF: 0 metformin 500 mg Tablet 500 mg PO BID RF: 0 Discontinued naproxen sodium [Aleve] 220 mg Capsule 220 mg PO UD PRN (Reason: Pain) RF: 0 Stand-Alone Forms: [facility], Opioid Pain Management Discharge Orders: Discharge Order (Routine); Ordered 01/29/19 Ordered By: Alberto Gaytan Admission Data Admit Date/Time: 01/28/19 16:38 Attending Provider: Farhat Winn Admit Provider: Farhat Winn Primary Care Provider: Richard Mixon Service: Surgical Services Other Interventions: Discharge Summary Assessment (RN) Last Done: 01/29/19 11:01 Pending Studies at Discharge: No DC Date/Time DO NOT enter until pt leaves facility: 01/29/19 11:30
[2019-01-29] MEDS ORDERED: CeleBREX 200 MG CAP PO SCH (21:00)
== END 2019-01-29 11:30 | disposition home or self-care (01) | DRG 483 ==
LOC: ASU 10:46 → 3E 16:38
DX: E66.01 Morbid (severe) obesity due to excess calories; E11.9 Type 2 diabetes mellitus without complications; M10.9 Gout, unspecified; Z68.42 Body mass index [BMI] 45.0-49.9, adult; I10 Essential (primary) hypertension; Z79.899 Other long term (current) drug therapy; Z79.84 Long term (current) use of oral hypoglycemic drugs; M19.011 Primary osteoarthritis, right shoulder